=== PATIENT | female | born 1995 | race Caucasian/White ===

== ENCOUNTER 2019-04-12 16:09 | Outpatient (CLI) | payer MEDICAID, SELFPAY ==
[2019-04-12 16:40] LABS: Abs Immature Grans 0.01 k/cumm (0.0-0.09); Absolute Basophil Count 0.05 k/cumm (0.0-0.2); Absolute Eosinophil Count 0.09 k/cumm (0.0-0.7); Absolute Lymphocyte Count 3.17 k/cumm (1.2-3.4); Absolute Neutrophil Count 2.58 k/cumm (1.2-6.7); Basophils % 0.8; Eosinophils % 1.4; HCT 38.6 % (36.0-46.0); HGB 12.7 g/dL (12.0-15.5); Immature Grans % 0.2 %; Lymphocytes % 49.5; Mean Corp. HGB Concentration 32.9 g/dL (32.0-36.0); Mean Corpuscular Hemoglobin 29.6 pg (27.0-33.0); Mean Platelet Volume 9.5 fL (8.0-11.0); Monocytes % 7.8; Neutrophils % 40.3; Platelet Count 228 x1000/uL (130-400); RBC 4.29 m/cumm (4.00-5.20); RBC Distribution Width 13.8 % (11.7-14.6)
[2019-04-12 17:12] LABS: ALT 38 U/L (14-59); AST 22 U/L (15-37); Albumin 3.8 g/dL (3.4-5.0); Alkaline Phosphatase 82 U/L (46-116); Anion Gap 9.5 mmol/L (3-11); BUN 18 mg/dL (7-18); Bilirubin, Total 0.3 mg/dL (0.2-1.0); CO2 28.5 mmol/L (21.0-32.0); CREATININE 0.74 mg/dL (0.55-1.02); Calcium 8.5 mg/dL (8.5-10.1); Chloride 103 mmol/L (98-107); Glucose 79 mg/dL (74-106); Sodium 141 mmol/L (136-145); Total Protein 7.3 g/dL (6.4-8.2)
== END 2019-04-12 16:29 ==
PROVIDERS: PCP Family Medicine; Visit Provider Internal Medicine
DX: R50.9 Fever, unspecified (principal); K59.00 Constipation, unspecified
CPT/HCPCS: 36415; 80053; 85025

== ENCOUNTER 2019-04-18 16:17 | Outpatient (REF) | payer MEDICAID, SELFPAY ==
[2019-04-19 11:32] LABS: Campylobacter PCR Negative (Negative); Salmonella PCR Negative (Negative); Shiga Toxin PCR Negative (Negative); Shigella/Enteroinvasive Ecoli Negative (Negative)
== END 2019-04-18 16:37 ==
LOC: LBN 16:17
PROVIDERS: Internal Medicine; PCP Family Medicine; Visit Provider Family Medicine
DX: K59.00 Constipation, unspecified (principal); R10.9 Unspecified abdominal pain
CPT/HCPCS: 87329; 87505; 87177

== ENCOUNTER 2020-10-31 02:34 | Outpatient (CLI) | payer MEDICAID, SELFPAY ==
[2020-10-31 12:54] LABS: Iron 184 ug/dL (50-170)
[2020-10-31 13:06] LABS: ALT 25 U/L (14-59); AST 45 U/L (15-37); Albumin 4.1 g/dL (3.4-5.0); Alkaline Phosphatase 76 U/L (46-116); Anion Gap 8.5 mmol/L (3-11); BUN 16 mg/dL (7-18); Bilirubin, Total 0.5 mg/dL (0.2-1.0); CO2 29.5 mmol/L (21.0-32.0); CREATININE 0.8 mg/dL (0.55-1.02); Calcium 9.2 mg/dL (8.5-10.1); Calculated LDL 73 mg/dL (<100); Chloride 104 mmol/L (98-107); Cholesterol 163 mg/dL (<200); Ferritin 68 ng/mL (8-252); Glucose 78 mg/dL (74-106); HDL Cholesterol 64 mg/dL (40-60); Potassium 4.7 mmol/L (3.5-5.1); Sodium 142 mmol/L (136-145); TSH (W/Ref FT4) 1.85 uIU/mL (0.36-3.74); Total Protein 7.7 g/dL (6.4-8.2); Triglyceride 131 mg/dL (<150)
== END 2020-10-31 02:35 | disposition home or self-care (01) ==
LOC: LBO 02:34
DX: E61.1 Iron deficiency (principal); Z00.00 Encounter for general adult medical examination without abnormal findings; Z13.220 Encounter for screening for lipoid disorders; R53.83 Other fatigue; G47.00 Insomnia, unspecified
CPT/HCPCS: 36415; 80053; 80061; 82728; 83540; 84443

== ENCOUNTER 2021-08-10 13:14 | Emergency (ER) | payer OTHER, SELFPAY ==
[2021-08-10 13:32] VITALS: BP 118/66; PULSE 120; RESP 14; TEMP 36.6; O2SAT 98
[2021-08-10] MEDS: Ondansetron O.D.T. 4 MG TABEF PO ×2 (14:38→16:47)
--- NOTE | 2021-08-10 14:45 | DI.US_ITS ---
Exam(s) US ABDOMEN LIMITED EXAM: US ABDOMEN LIMITED CLINICAL HISTORY: R/O Cholecystitis, N/V TECHNIQUE: Ultrasound abdomen performed using standard protocol. COMPARISON: US ABDOMEN ULTRASOUND (P) from 07/28/2015 FINDINGS: LIVER: Normal size and echogenicity. No focal liver lesions are seen.. GALLBLADDER: No evidence of cholelithiasis. No evidence of wall thickening. No pericholecystic fluid identified. DIALLO'S SIGN: Negative. BILIARY SYSTEM: No intrahepatic or extrahepatic biliary ductal dilation. RIGHT KIDNEY: Normal size. No evidence of renal calculi. No evidence of hydronephrosis. No suspicious renal mass. No cyst identified. PANCREAS: Normal where visualized. ABDOMINAL AORTA AND IVC: Visualized portions normal caliber. ASCITES: None seen. IMPRESSION: Normal sonographic appearance of the right upper quadrant. DATA REPOSITORY:
[2021-08-10 14:47] LABS: Bilirubin Negative (Negative); Blood Negative (Negative); Clarity Sl Cloudy (Clear); Glucose Negative (Negative); Ketones Negative (Negative); Leukocyte Esterase Negative (Negative); Nitrite Negative (Negative); Urobilinogen 0.2 EU/dL (Up TO 0.2)
[2021-08-10 14:53] LABS: Bacteria Few HPF (Negative); C & S Indicated? No; Casts 0-2 Hyaline LPF (Negative); Crystals Negative HPF (Negative); Epithelial Cells Many HPF (Negative); Mucus Negative (Negative); RBC Negative HPF (0-2); WBC Negative HPF (0-5)
--- NOTE | 2021-08-10 14:54 | W.ED.GENAD ---
Discharge Plan Disposition Patient Disposition: STILL A PATIENT Discharge Details Primary Care Provider: Jhoana Davila ED Provider: Elian Cody Home Meds and New Rx's Prescriptions: No Action buspirone 7.5 mg Tablet 7.5 mg PO BID Medical Decision Making 26-year-old female presents to the ER with chief complaint of midepigastric abdominal pain and nausea vomiting which began approximately 4 AM this morning. She reports diarrhea. Denies any hematochezia or blood in her stool. She denies any history of abdominal surgeries. Past medical history includes iron deficient, scoliosis spondylolisthesis. She is on control denies any possibility being . She reports she was seen by BOBBIN CLEANING MACHINE OPERATOR 2 days ago and had a negative test. 1457: Patient received 4 mg Zofran ODT in the waiting room was given oral fluids upon entrance into the ER room. She has tolerated without difficulty at this time. CBC, CMP, lipase ordered urinalysis shows no evidence for UTI no leukocytes no nitrites. Abdominal ultrasound ordered to rule out cholecystitis. Differential diagnosis includes but not limited to gastroenteritis, cholecystitis, appendicitis. Will consider CT abdomen pelvis without contrast. Care is to be handed off to oncoming provider Asad Cody pending labs and ultrasound report. Lab Data Lab results reviewed: Yes I reviewed the patient's lab results. Labs: Laboratory Tests Range/Units 08/10/21 14:37 Urine Color (Yellow) Yellow Urine Clarity (Clear) Sl Cloudy Urine pH (5-8) 7.0 Ur Specific [place] (1.005-1.025) 1.020 Urine Protein (Negative) mg/dL 30 H Urine Ketones (Negative) mg/dL Negative Urine Blood (Negative) Negative Urine Nitrite (Negative) Negative Urine Bilirubin (Negative) Negative Urine Urobilinogen (Up TO 0.2) EU/dL 0.2 Ur Leukocyte Esterase (Negative) Negative Urine RBC (0-2) HPF Negative Urine WBC (0-5) HPF Negative Ur Epithelial Cells (Negative) HPF Many Urine Crystals (Negative) HPF Negative Urine Bacteria (Negative) HPF Few Urine Casts (Negative) LPF 0-2 Hyaline Urine Mucus (Negative) Negative Ur Culture Indicated? No Urine Glucose (Negative) mg/dL Negative HPI General Mode of arrival: ambulatory. Date/Time Provider Initiated Documentation: 08/10/21 13:36. Limitations to Documentation: no limitations. Information obtained by: patient, RN notes reviewed and old records reviewed. HPI Narrative: 26-year-old female presents to the ER with chief complaint of midepigastric abdominal pain and nausea vomiting which began approximately 4 AM this morning. She reports diarrhea. Denies any hematochezia or blood in her stool. She denies any history of abdominal surgeries. Past medical history includes iron deficient, scoliosis spondylolisthesis. She is on control denies any possibility being . She reports she was seen by BOBBIN CLEANING MACHINE OPERATOR 2 days ago and had a negative test. Related Data Home Medications Medication Instructions Recorded Confirmed buspirone 7.5 mg tablet 7.5 mg PO BID 08/10/21 08/10/21 Allergies Allergy/AdvReac Type Severity Reaction Status Date / Time No Known Allergies Allergy Verified 08/10/21 13:36 General Stated Complaint: Nausea/Vomit/Diar TIEN: 3 Review of Systems All systems reviewed & are unremarkable except as noted in HPI and below Gastrointestinal Gastrointestinal: Reports abdominal pain, Reports diarrhea, Reports nausea and Reports vomiting PFSH All Active Problems Iron deficiency (Acute) Scoliosis deformity of spine (Chronic) Pars defect with spondylolisthesis (Chronic) [facility]; Pars defect of L5 causes grade 2 spondylolisthesis of L5 on S1 Medical History nneka (03/17/15) Fracture of radius and ulna (08/16/05) RIGHT Impacted cerumen of right ear Syncope Family History Mother Frequent UTI Father Essential hypertension Brother Hyperlipidemia Maternal Grandfather , 76 No problems noted. Paternal Grandfather , 36 No problems noted. Maternal Grandmother Asthma Paternal Grandmother No problems noted. Brother No problems noted. Social History Smoking/Tobacco Use Status: Never Second Hand Exposure: Yes Smoking risk assessment performed?: Yes Alcohol Intake: current Alcohol Intake frequency: a few times a week Alcohol type: wine and hard liquor Drug use: Never Substance use type: does not use Counseling given: No Counseling provided: none Caregiver/Support person: No Household members: significant other Housing: house Communication Needs: None Do you need help understanding health information?: Never current occupation: Works as a dental hygienist Pets and animals: Yes Pets and animals: dog(s) Sexually active: Yes Do you think of yourself as: straight/heterosexual Current gender identity: female What is your relationship status?: living with partner How often do you talk on the phone with friends or family?: three or more times per week How often do you get together with friends or relatives?: three or more times per week How often do you attend mandaeism or mu-ism services?: 1-3 times per year Do you belong to any clubs or organized social groups?: no Panel score (0-1 are the most socially isolated patients): 2 What type of physical activity do you participate in: aerobic and weight lifting Duration: 45-60 minutes/day Frequency: 3-4 times per week Coco/Hoahaoism: Congregational Special coco needs: No Seatbelt use: always Helmet use: Yes Helmet use: always Drive intox or ride w/intox piledriver carpenter: No Do you feel safe at home: Yes Do you feel safe in your relationship?: Yes Exam Narrative Exam Narrative: Constitutional: Alert and oriented x3. Appears stated age. Normal body habitus. Head: Normocephalic, no trauma. Eyes: Pupils PERRL, Red reflex noted, EOM's intact. Eyelids symmetrical without lesions, discharge, or swelling. ENT: Bilateral TM's WNL, External ear normal to inspection, no mastoid TTP, swelling, or erythema, Nasal turbinates WNL, no nasal discharge. Normal dentition, Posterior pharynx WNL, no exudate. Chest: RRR, Normal S1, S2, distal pulses intact. Resp: Lungs clear to auscultation bilaterally, no wheezes, rales, or rhonchi. Abdomen: Mid right upper quadrant tenderness with palpation, negative nor Garcia sign. Abdomen is soft, non-distended, hypoactive bowel sounds all 4 quads. Musculoskeletal: Normal gait, 5/5 strength to all four extremities. Skin: No suspicious rashes or lesions. Capillary refill less than 2 sec. Neurologic: Cranial nerves II-XII intact. Alert and oriented x 3. Motor: No deficits noted. Sensory: Intact bilaterally all 4 extremities. Course Vital Signs Vital signs: Vital Signs Temperature 36.6 C 08/10/21 13:32 Pulse 120 H 08/10/21 13:32 Respiratory Rate 14 08/10/21 13:32 Blood Pressure 118/66 08/10/21 13:32 Pulse Oximetry 98 08/10/21 13:32 Temperature 36.6 C 08/10/21 13:32 Temperature Source Skin 08/10/21 13:32 Pulse 120 H 08/10/21 13:32 Respiratory Rate 14 08/10/21 13:32 Respiratory Effort Non-Labored 08/10/21 14:38 Blood Pressure 118/66 08/10/21 13:32 Blood Pressure Position Sitting 08/10/21 13:32 Pulse Oximetry 98 08/10/21 13:32 Oxygen Delivery Method Room Air 08/10/21 13:32 Oxygen Flow Rate 0 08/10/21 13:32 Pain Level 7 08/10/21 13:32 Lab/Test Results Lab/Test Results: Laboratory Tests Range/Units 08/10/21 14:37 Urine Color (Yellow) Yellow Urine Clarity (Clear) Sl Cloudy Urine pH (5-8) 7.0 Ur Specific [place] (1.005-1.025) 1.020 Urine Protein (Negative) mg/dL 30 H Urine Ketones (Negative) mg/dL Negative Urine Blood (Negative) Negative Urine Nitrite (Negative) Negative Urine Bilirubin (Negative) Negative Urine Urobilinogen (Up TO 0.2) EU/dL 0.2 Ur Leukocyte Esterase (Negative) Negative Urine RBC (0-2) HPF Negative Urine WBC (0-5) HPF Negative Ur Epithelial Cells (Negative) HPF Many Urine Crystals (Negative) HPF Negative Urine Bacteria (Negative) HPF Few Urine Casts (Negative) LPF 0-2 Hyaline Urine Mucus (Negative) Negative Ur Culture Indicated? No Urine Glucose (Negative) mg/dL Negative POC- Test(urine) Negative Sign Out Sign Out Data: Sign Out Comment: Pending labs and ultrasound. Midepigastric abdominal pain with nausea vomiting diarrhea began 4 this morning. She is tolerating p.o. fluids without difficulty. Patient did not tolerate IV access or blood draw at this time. Last updated by Allison Cotton at 08/10/21 15:27
[2021-08-10 15:39] LABS: Abs Immature Grans 0.05 10^3/uL (0.0-0.06); Absolute Basophil Count 0.02 10^3/uL (0.0-0.2); Absolute Lymphocyte Count 0.45 10^3/uL (1.2-3.4); Absolute Monocyte Count 0.35 10^3/uL (0.1-0.8); Basophils % 0.1; HCT 44.1 % (36.0-46.0); HGB 14.7 g/dL (11.2-15.7); Immature Grans % 0.3; Lymphocytes % 2.7; MCH 29.4 pg (27.0-33.0); MCHC 33.3 % (32.0-36.0); MCV 88 fL (80-95); MPV 9.1 fL (8.0-11.0); Monocytes % 2.1; Neutrophils % 94.8; Platelet Count 329 10^3/uL (130-400); RDW 12.3 % (11.7-14.6); RDW-SD 39.5 fL; WBC 16.58 10^3/uL (4.4-10.8)
[2021-08-10 15:42] LABS: Absolute Neutrophil Count 15.72 10^3/uL (1.2-6.7)
[2021-08-10 15:57] LABS: ALT 31 U/L (14-59); AST 21 U/L (15-37); Albumin 4.1 g/dL (3.4-5.0); Alkaline Phosphatase 66 U/L (46-116); Anion Gap 10.5 mmol/L (3-11); BUN 19 mg/dL (7-18); Bilirubin, Total 0.7 mg/dL (0.2-1.0); CO2 25.5 mmol/L (21.0-32.0); CREATININE 0.8 mg/dL (0.55-1.02); Calcium 8.7 mg/dL (8.5-10.1); Chloride 106 mmol/L (98-107); Glucose 109 mg/dL (74-106); Magnesium 1.6 mg/dL (1.8-2.4); Sodium 142 mmol/L (136-145)
[2021-08-10 16:04] LABS: Lipase 49 U/L (73-393)
[2021-08-10] MEDS: Magnesium Oxide 400 MG TAB PO (16:05)
--- NOTE | 2021-08-10 16:43 | W.EDPROG ---
Date of service: 08/10/21 Time of Service: 15:43 Medical Decision Making Patient signed out to me pending ultrasound imaging and review of remainder of labs. medical staff director did inform me that patient is tolerating p.o. intake. Discussion of ultrasound with field installation technician reveals no worrisome findings to the right upper quadrant. Review of labs do show leukocytosis but I suspect that this is more due to patient's vomiting than acute bacterial infectious process, patient does have low magnesium and we will plan on giving oral mag due to patient tolerating p.o. intake. Lipase is within normal limits and CMP shows slight increase of BUN, appropriate creatinine, slightly elevated glucose otherwise nondiagnostic labs with normal LFTs. Given overall not worrisome labs I did reassess patient. Patient still has mild epigastric tenderness but no positive Garcia sign, no McBurney's point tenderness, normal active bowel sounds in all quadrants, and she did state improvement of symptoms compared to initial presentation. I suspect either foodborne illness versus viral etiology but safe for outpatient management of symptoms. Did discuss with patient return and follow-up precautions. Will send patient home with ALAN Deleon and instructed patient to have clear liquids for the next 12 to 24 hours and then slowly increase diet as tolerated. After discussion of diagnosis and plan of care patient has no further needs, questions, or concerns and states clear understanding to return to the emergency department for any worsening symptoms. Lab Data Lab results reviewed: Yes I reviewed the patient's lab results. Exam Const General: cooperative Orientation: alert, awake and oriented x3 Resp Effort & Inspection: normal respiratory effort and able to speak in complete sentences Auscultation: clear to auscultation bilaterally Cardio Rate: regular rate Rhythm: regular rhythm Heart Sounds: S1 normal and S2 normal GI Palpation: soft, no hepatosplenomegaly, not firm, no guarding, no masses, no pulsatile masses, not rigid, no splenomegaly and tender in the epigastrum; not in the RUQ, not at McBurney's point, not suprapubicly, Garcia's sign negative, psoas sign negative, with no rebound tenderness and Rovsing's sign negative Auscultation: normal bowel sounds Back/Spine/Pelvis Back: no CVA tenderness Neuro General: patient alert, patient awake, patient oriented x3, gait normal and moves all extremities Sign Out Sign Out Data: Sign Out Comment: Pending labs and ultrasound. Midepigastric abdominal pain with nausea vomiting diarrhea began 4 this morning. She is tolerating p.o. fluids without difficulty. Patient did not tolerate IV access or blood draw at this time. Last updated by Allison Cotton at 08/10/21 15:27 Discharge Plan Disposition Patient Disposition: HOME Condition: Improving Discharge Details Clinical Impression: Nausea & vomiting Primary Care Provider: Jhoana Davila ED Provider: Elian Cody Home Meds and New Rx's Prescriptions: No Action buspirone 7.5 mg Tablet 7.5 mg PO BID Discharge Instructions Instructions: Acute Nausea and Vomiting (ED) Additional Instructions: As discussed if you have a worsening or migration of pain to a localized spot in your abdomen such as right lower quadrant return immediately to the emergency department, persistent vomiting that is uncontrollable, or any worrisome concerns that you have and we will perform appropriate reassessment and testing as needed. It is recommended for the next 12 to 24 hours that you start with clear liquids and then slowly resume your normal diet as tolerated. Do not eat a large meal as this may worsen it but start with small frequent meals. If no worsening of symptoms occurs but you are not improving in the next 3 to 4 days please follow-up with your primary care provider for reassessment. Stand Alone Forms: Work Release Referrals: Jhoana Davila [Primary Care Provider] - (As needed for reassessment or if not improving) Discharge Data Discharge Date/Time-TO BE ENTERED AT DEPARTURE: 08/10/21 16:52
[2021-08-10] MEDS: Acetaminophen 500 MG TAB 1000 MG PO (16:47)
[2021-08-10] MEDS: Ondansetron O.D.T. 4 MG TABEF, 3 TABS/BTL PO (16:47)
== END 2021-08-10 16:52 | disposition home or self-care (01) ==
PROVIDERS: Registered Nurse Emergency; Emergency Provider Nurse Practitioner Family; PCP Nurse Practitioner Family
DX: R11.2 Nausea with vomiting, unspecified (principal); D72.829 Elevated white blood cell count, unspecified
CPT/HCPCS: 36415; 80053; 83690; 99284; 76705; 81003; 81015; 83735; 85025; 99283

== ENCOUNTER 2022-07-16 14:42 | Outpatient (REF) | payer OTHER, SELFPAY | END 2022-07-16 14:43 | disposition home or self-care (01) | LOC: LBN 14:42 | PROVIDERS: PCP Nurse Practitioner Family; Visit Provider Physician Assistant Medical | DX: J02.9 Acute pharyngitis, unspecified (principal) | CPT/HCPCS: 87070 ==

== ENCOUNTER 2022-09-03 15:03 | Outpatient (REF) | payer OTHER, SELFPAY ==
--- NOTE | 2022-09-03 14:30 | PAPFT_PTH ---
PATIENT: Francisco Thayer LOC: [facility] U#:[id number] AGE/SX: 27/F ROOM: RE09/03/[address]: Jhoana Davila : 1995 BED: DIS: 09/03/2022 SPEC #: [id number] RECD: 09/09/22 13:38 STATUS: KATHERINE REMayra #: [id number] MUSA: 09/03/22 14:[address]: Jhoana Davila DEPT: [facility] Cytology RECD BY: Miladys Bullard Tissues: 1 - CX/ENDOCX FOR PAP SMEARS Procedures: PAP THIN PREP/[facility] Screening Comments: [id number]
== END 2022-09-03 15:04 | disposition home or self-care (01) ==
LOC: NCHCN 15:03
PROVIDERS: PCP Nurse Practitioner Family; Visit Provider Nurse Practitioner Family
DX: Z00.00 Encounter for general adult medical examination without abnormal findings (principal); Z12.4 Encounter for screening for malignant neoplasm of cervix; Z01.419 Encounter for gynecological examination (general) (routine) without abnormal findings
CPT/HCPCS: 88142

== ENCOUNTER 2023-04-12 16:31 | Outpatient (REF) | payer OTHER, SELFPAY | END 2023-04-12 16:32 | disposition home or self-care (01) | LOC: LBN 16:31 | PROVIDERS: PCP Nurse Practitioner Family; Visit Provider Advanced Practice Midwife | DX: O26.891 Other specified pregnancy related conditions, first trimester (principal); R10.9 Unspecified abdominal pain; Z3A.09 9 weeks gestation of pregnancy | CPT/HCPCS: 87086 ==

== ENCOUNTER 2023-04-22 02:44 | Outpatient (CLI) | payer OTHER, SELFPAY ==
[2023-04-22 12:03] LABS: Panorama Kit Sent via Fed Ex
[2023-04-22 12:14] LABS: Abs Immature Grans 0.06 10^3/uL (0.0-0.06); Absolute Basophil Count 0.05 10^3/uL (0.0-0.2); Absolute Eosinophil Count 0.08 10^3/uL (0.0-0.7); Absolute Lymphocyte Count 2.37 10^3/uL (1.2-3.4); Absolute Monocyte Count 0.75 10^3/uL (0.1-0.8); Absolute Neutrophil Count 8.78 10^3/uL (1.2-6.7); Basophils % 0.4; Eosinophils % 0.7; HCT 37.1 % (36.0-46.0); HGB 12.8 g/dL (11.2-15.7); Immature Grans % 0.5; Lymphocytes % 19.6; MCH 29.6 pg (27.0-33.0); MCHC 34.5 % (32.0-36.0); MCV 86 fL (80-95); Monocytes % 6.2; Neutrophils % 72.6; Platelet Count 304 10^3/uL (130-400); RBC 4.32 10^6/uL (3.93-5.22); RDW 12.6 % (11.7-14.6); RDW-SD 39.6 fL; WBC 12.09 10^3/uL (4.4-10.8)
[2023-04-22 12:45] LABS: TSH (W/Ref FT4) 1.96 uIU/mL (0.36-3.74)
[2023-04-22 17:43] LABS: Hepatitis B Surface Ag Negative (Negative)
[2023-04-22 18:10] LABS: HIV-1/2 Ag & Ab Screen Negative (Negative)
[2023-04-22 18:15] LABS: Hepatitis C Ab w Rflx HCV PCR Negative (Negative)
[2023-04-25 12:15] LABS: Varicella IgG Antibody Positive (See Note)
[2023-04-25 12:35] LABS: Rubella IgG Ab (UVM) Positive (See Note)
[2023-04-26 15:37] LABS: Syphilis IgG w/Reflex Nonreactive (Nonreactive)
[2023-05-11 12:19] LABS: Result Summary NEGATIVE; Specimen WB Whole Blood
== END 2023-04-22 02:45 | disposition home or self-care (01) ==
LOC: LBO 02:44
PROVIDERS: Advanced Practice Midwife; PCP Nurse Practitioner Family; Visit Provider Advanced Practice Midwife
DX: Z34.91 Encounter for supervision of normal pregnancy, unspecified, first trimester (principal); Z83.49 Family history of other endocrine, nutritional and metabolic diseases
CPT/HCPCS: 36415; 81220; 81222; 86787; 86803; 86850; 86900; 86901; 87340; 87389; 84443; 85025; 86762; 86780

== ENCOUNTER 2023-04-22 11:35 | Outpatient (REF) | payer OTHER, SELFPAY ==
[2023-04-23 13:46] LABS: Chlamydia Result Negative (Negative); GC Result Negative (Negative)
== END 2023-04-22 11:36 | disposition home or self-care (01) ==
LOC: LBN 11:35
PROVIDERS: PCP Nurse Practitioner Family; Visit Provider Advanced Practice Midwife
DX: Z34.91 Encounter for supervision of normal pregnancy, unspecified, first trimester (principal)
CPT/HCPCS: 87491; 87591

== ENCOUNTER 2023-08-19 02:10 | Outpatient (CLI) | payer OTHER, SELFPAY ==
[2023-08-19 08:58] LABS: HCT 36.2 % (36.0-46.0); HGB 11.9 g/dL (11.2-15.7); MCH 29.7 pg (27.0-33.0); MCHC 32.9 % (32.0-36.0); MCV 90 fL (80-95); MPV 8.9 fL (8.0-11.0); Platelet Count 305 10^3/uL (130-400); RBC 4.01 10^6/uL (3.93-5.22); RDW 12.3 % (11.7-14.6); RDW-SD 40.7 fL; WBC 9.32 10^3/uL (4.4-10.8)
[2023-08-19 09:18] LABS: Glucose,1 Hr (Glucola) 143 mg/dL (80-140)
== END 2023-08-19 02:11 | disposition home or self-care (01) ==
LOC: LBO 02:19
PROVIDERS: PCP Nurse Practitioner Family; Visit Provider Advanced Practice Midwife
DX: Z34.92 Encounter for supervision of normal pregnancy, unspecified, second trimester (principal); Z3A.28 28 weeks gestation of pregnancy
CPT/HCPCS: 36415; 82950; 85027

== ENCOUNTER 2023-09-02 01:28 | Outpatient (CLI) | payer OTHER, SELFPAY ==
[2023-09-02 09:10] LABS: Glucose 1 Hour 164 mg/dL
[2023-09-02 11:08] LABS: Glucose 3 Hour 96 mg/dL
== END 2023-09-02 01:29 | disposition home or self-care (01) ==
LOC: LBO 01:29
PROVIDERS: PCP Nurse Practitioner Family; Visit Provider Advanced Practice Midwife
DX: Z34.90 Encounter for supervision of normal pregnancy, unspecified, unspecified trimester (principal)
CPT/HCPCS: 36410; 82951

== ENCOUNTER 2023-10-24 16:29 | Outpatient (CLI) | payer OTHER, SELFPAY ==
[2023-10-24 17:14] VITALS: BP 130/74; PULSE 80
[2023-10-24 17:17] VITALS: BP 130/74; PULSE 96
--- NOTE | 2023-10-24 17:27 | W.OBNST ---
Date of service: 10/24/23 Time of Service: 17:27 NST Evaluation Reason for NST Reasons for Nonstress Test: OTHER, SEE COMMENT Reason for NST Other: CNM wanted to confirm baseline FHR Gestational Age Gestational Age in Weeks and Days: 37 Weeks and 3Days Test and Monitor Explained Test/Monitor Explained: Test Explained, Monitor Explained and Patient Verbalized Understanding Vital Signs Blood Pressure: 130/74 Pulse: 80 NST Information Date on Monitor: 10/24/23 Time on Monitor: 16:33 Date off Monitor: 10/24/23 Time off Monitor: 16:54 Total Time on Monitor: 21 NST Interventions: None NST Evaluation Patient States Movement: Present FHR Baseline: 130 Variability: Moderate 6-25 bpm Accelerations: 15x15 Decelerations: None NST Results: Reactive Note Ultrasound Done: N/A. NST Note Note: Francisco had routine visit today and low FHR baseline was noted with doppler. reactive NST with 120s baseline. RTO 1 week for visit, NST Reviewed and Verified by: Meggan Lobo
[2023-10-24 17:29] VITALS: BP 130/74; PULSE 80
[2023-10-26 08:42] VITALS: BP 113/65; PULSE 94
[2023-10-26 08:45] VITALS: PULSE 111
== END 2023-10-24 17:21 ==
LOC: BCD 16:30 → OBS 16:33
PROVIDERS: PCP Nurse Practitioner Family; Visit Provider Advanced Practice Midwife
DX: O36.8331 Maternal care for abnormalities of the fetal heart rate or rhythm, third trimester, fetus 1 (principal); Z3A.37 37 weeks gestation of pregnancy
CPT/HCPCS: 59025; 87081

== ENCOUNTER 2023-11-04 08:46 | Inpatient (IN) | payer OTHER, SELFPAY ==
[2023-11-04] VITALS (116 sets, daily range): BP systolic 69–146; BP diastolic 44–83; PULSE 86–153; RESP 16; TEMP 36.2–37; O2SAT 95–100; BMI 36.5
--- NOTE | 2023-11-04 08:48 | HPE_ITS ---
Date of service: 11/04/23 Time of Service: 08:48 Assessment and Plan Assessment and plan (1) PROM (premature rupture of membranes): Status: Acute Assessment and plan: A: 28 yo G1 @ 39 wks, PROM clear x9 hrs, latent phase w/marshall score=5 GBS neg, moderate risk for SD/PPH due to BMI and 60 lb weight gain Category 1 tracing, pt appears comfortable, FOB present for support Hx anxiety treated w/sertraline and anemia treated w/oral iron supplementation Scoliosis of the spine, INTELLIGENCE ANALYST consult done 10/13/23 (see note) P: Options in plan of care with risks and benefits reviewed with pt & FOB, Pt would like a misoprostel dose in hopes of triggering labor Plan will be to initiate pitocin induction if no cervical change after miso dose Care plan made in consultation with Dr. Blunt and unit huddle due to volume on unit Comfort measures as requested by pt, anticipate Qualifiers: PROM onset of labor timing: unspecified duration between rupture of membranes and onset of labor PROM gestational age: full term Qualified Code(s): O42.92 - Full-term premature rupture of membranes, unspecified as to length of time between rupture and onset of labor OB-HPI Labor/Delivery History of Present Illness Reason for Visit: PROM at 39 Wks Chief Complaint: Suspected Rupture of Membranes , Associated Signs and Symptoms of Suspected ROM: gushes of clear fluids since 129, mild cramping, no bleeding, no vomiting.. VIOLET Calculator Estimated Delivery Date Method Current WG Current Estimate 11/11/23 LMP (Certain) 39w 0d Other Estimates 11/14/23 Ultrasound #1 38w 4d History of Present Expected Delivery Route/Plan - CNM FOB/ - Mike Thayer BB, yes to circ team is FOB and damage assessor ([place]) Took empowered birthing classes. Hopes not to have epidural but would be OK with it GBS negative Specific Issues/Plan 1. cfDNA low risk male, CF carrier negative, declined SMA 2. Will get records release for Pap done 2022 at [facility] 3. Scoliosis, plan third trimester INTELLIGENCE ANALYST assessment, done 10/13/23 4. 5P's negative 5. Takes sertraline for anxiety, Taking 50 mg 6. Low lying placenta, patient notified, 28 weeks US- now 4 cms from cervical os. 7. one hour GTT @ 28 wks - 143, 3-hr GTT = nml x4 8. Sees a chiropractor regularly for chronic low back, neck and shoulder pain - right outer thigh numbness at 37 weeks. Assessment: History Reviewed & Current Informed Consent Informed Consent: Induction of Labor and Risk,Benefits,Alternatives Discussed Review of Systems Narrative: ROS completed and noncontributory other than HPI PFSH All Active Problems (Updated 11/04/23 @ 08:53 by Diana Lebron) PROM (premature rupture of membranes) (Acute) Stress incontinence (Acute) (Acute) Anxiety (Chronic) Iron deficiency (Acute) Scoliosis deformity of spine (Chronic) Pars defect with spondylolisthesis (Chronic) [facility]; Pars defect of L5 causes grade 2 spondylolisthesis of L5 on S1 Medical History (Updated 11/04/23 @ 08:53 by Diana Lebron) Nausea/vomiting in 03/2023. Initial Rx Ondansetron not effective. 04/06/23. Discontinued Ondansetron, Began Reglan 5mg q6hr Cramping affecting , antepartum Low lying placenta nos or without hemorrhage, second trimester resolved by 28 wk ultrasound Family history of thyroid disease Impacted cerumen of right ear Syncope nneka (03/17/15) Fracture of radius and ulna (08/16/05) RIGHT Family History (Updated 04/22/23 @ 10:54 by Meggan Hall CNM) Mother Frequent UTI Thyroid disease Father Essential hypertension Brother Hyperlipidemia Maternal Grandfather , 76 No problems noted. Paternal Grandfather , 36 Cancer Lung CA, was smoker Maternal Grandmother Asthma Paternal Grandmother Breast cancer diagnosed 71 Brother No problems noted. Social History Smoking/Tobacco Use Status: Never Second Hand Exposure: Yes Smoking risk assessment performed?: Yes Alcohol Intake: current Alcohol Intake frequency: a few times a week Alcohol type: wine and hard liquor Drug use: Never Substance use type: does not use Counseling given: No Counseling provided: none Caregiver/Support person: No Household members: significant other Housing: house Communication Needs: None Do you need help understanding health information?: Never current occupation: Works as a dental hygienist Pets and animals: Yes Pets and animals: dog(s) Sexually active: Yes Do you think of yourself as: straight/heterosexual Current gender identity: female What is your relationship status?: living with partner How often do you talk on the phone with friends or family?: three or more times per week How often do you get together with friends or relatives?: three or more times per week How often do you attend denominational or tenriism services?: 1-3 times per year Do you belong to any clubs or organized social groups?: no Panel score (0-1 are the most socially isolated patients): 2 What type of physical activity do you participate in: aerobic and weight lifting Duration: 45-60 minutes/day Frequency: 3-4 times per week Coco/Hindu: Adventist Special coco needs: No Seatbelt use: always Helmet use: Yes Helmet use: always Drive intox or ride w/intox trash collector truck driver: No Do you feel safe at home: Yes Do you feel safe in your relationship?: Yes History History 2 Para 0 Hx # Term Pregnancies 0 Multiple births 0 Hx # Pregnancies 0 Ectopic pregnancies 0 AB induced 0 Hx Number of Living Children 0 AB spontaneous 1 Past Pregnancies Del. Date GA/Weeks # Preg Succ Route Wgt Sex Labor Lgth Anesth esia Location Prov Complic 01/19/23 6 No Delivery Date: 01/19/23 Last Updated by: Meggan Hall CNM [facility], treated at [facility]/ D&C Med Allergies and Home Medications Allergies Allergy/AdvReac Type Severity Reaction Status Date / Time adhesive tape AdvReac Intermediate Skin Rash Uncoded 11/03/23 14:10 Home Medications ?Medication ?Instructions ?Recorded ?Confirmed ?Type vitamin #56-iron 35 mg 1 cap PO DAILY 03/16/23 11/04/23 History and 5 mg-folic acid 1 mg-dha capsule ondansetron HCl 8 mg tablet 8 mg PO Q8H PRN nausea and 06/10/23 11/04/23 Rx vomiting #30 tabs ascorbate calcium (vitamin C) 500 500 mg PO DAILY PRN 09/23/23 11/04/23 History mg tablet docusate sodium 50 mg capsule 50 mg PO BID PRN 09/23/23 11/04/23 History (Colace Clear) magnesium 200 mg tablet 200 mg PO DAILY PRN 09/23/23 11/04/23 History omeprazole magnesium 20 mg 40 mg PO DAILY PRN 09/23/23 11/04/23 History capsule,delayed release (Acid Bologna Maker (omeprazole)) sertraline 50 mg tablet 50 mg PO DAILY #30 tabs 09/23/23 11/04/23 Rx [place] oil PO 10/24/23 11/03/23 History Exam Physical Exam Vital Signs Reviewed: Yes Narrative: afebrile, normotensive Constitutional Constitutional: no acute distress, obese and cooperative Detailed Labor and Delivery Exam Dilation: 1 Effacement (%): 70 station: -3 Position: LOP Cervix position: mid Consistency: medium MARSHALL Score(Cervical Ripeness Score): 5 Amniotic Membrane Status: Ruptured Amniotic Fluid: Clear Pooling: Positive (gross rupture) Nitrazine: Positive Ferning: Present Contraction Frequency(min): irregular Contraction Intensity: Mild Fetus A Heart Rate Baseline: 140 Monitor Accelerations: 15 X 15 Monitor Decelerations: None Variability: Moderate (6-25 BPM) Categories: Category I Est. Weight: 8 lb 9.568 oz Est. Weight: 3900 gms Date of Membrane Rupture: 11/04/23 Time of Membrane Rupture: 01:30 HEENT Exam HEENT Exam: Normal Neck Exam Neck Exam: Normal Chest/Brest/Axilla Exam Chest Exam: Normal Breast Exam Breast Exam: Not Done Respiratory Exam Respiratory Exam: Normal Cardiovascular Exam Cardiovascular Exam: Normal Abdominal Exam Abdominal Exam: Normal (Gravid, nontender) Rectal Exam Rectal Exam: Normal Exam Exam: Normal Extremities Exam Extremities Exam: Normal Back/Spine/Pelvis Exam Back Exam: Normal Pelvis Adequate: Yes Skin Exam Skin Exam: Normal Neurological Exam Neurological Exam: Normal Psychiatric Exam Psychiatric Exam: Normal Results Results Group Beta Strep: Negative Blood Type: B+ Rubella Status: Immune Varicella Immunity: Immune Lab Results: 3 hr GTT at 30 wks was nml x4 values Risk Assessment Risk for Shoulder Dystocia Historical/Initial OB: NEGATIVE FOR: Pelvic Abnormality, Pre- BMI>30, Previous Shoulder Dystocia or Previous Macrosomia 36 Weeks: POSITIVE FOR: Maternal Weight Gain>40lbs; NEGATIVE FOR: Current Gestational DM or EFW>4500gms Increased Risk?: Yes Date/Initial: 04/22/23 [facility] Delivery Plan @ 36wks: spont labor, Risk for Pre-Eclampsia Date Initiated/Initials: 04/22/23 Yes, if one or more: NEGATIVE FOR: Hx Pre-E/Gest HTN, Chronic HTN, Multiple Gestation, Pre-gestational DM, Renal Disease, Systemic Lupus or APA Syndrome Yes, if 2 or more: POSITIVE FOR: Nulliparity; NEGATIVE FOR: Age>= 35 yrs, >10yr btwn pregnancies, BMI>30, ethinicty, Mother/Sister w/ Pre-E or Previous IUGR Risk for Post- Hemorrhage Initial: NEGATIVE FOR: Multiple Gestation, Previous PPH, Known Clotting Deficiency, Grand Multiparity or Anticoagulation 36 Weeks: NEGATIVE FOR: Anemia, hgb<10, Low platelets(thrombocytopenia), Gestational HTN or Pre-E, Polyhydraminios or EFW>4500gms At Risk?: Yes (due to LGA and induction process) Counseled re: Active Management: Yes Risks Reviewed Risks Reviewed Upon Admission: Yes
[2023-11-04 09:06] LABS: HCT 37.9 % (36.0-46.0); HGB 12.4 g/dL (11.2-15.7); MCH 28.4 pg (27.0-33.0); MCHC 32.7 % (32.0-36.0); MCV 87 fL (80-95); MPV 9.5 fL (8.0-11.0); Platelet Count 275 10^3/uL (130-400); RBC 4.36 10^6/uL (3.93-5.22); RDW 13.8 % (11.7-14.6); RDW-SD 43.5 fL; WBC 10.23 10^3/uL (4.4-10.8)
--- NOTE | 2023-11-04 14:17 | W.PM.OBNL1 ---
Date of service: 11/04/23 Time of Service: 14:18 Pelvic Exam Dilation: 2 Effacement (%): 100 station: -3 Cervix Position: mid Consistency: soft BISHOPS Score(Cervical Ripeness Score): 7 Contractions Monitor Mode: External Contraction Frequency(min): q3-4 Intensity: Mild/Moderate Fetus A Monitor: External (US) Heart Rate Baseline: 150 Variability: Moderate (6-25 BPM) Categories: Category I Accelerations: 15 X 15 Decelerations: None Amniotic Membrane Status: Ruptured Assessment and Plan Assessment and plan (1) PROM (premature rupture of membranes): Status: Acute Assessment and plan: A: Miso dose was held as pt became more uncomfortable and contrx more frequent She has been showering, resting and ambulating, tolerating very light PO intake. SVE done at pt request, cvx now 2/100%, vtx -3 Category 1 tracing, hill score advanced to 7 P: Cervical ripening not indicated, pt declines pitocin induction at this time Will continue expectant management, monitor for progress Comfort measures as pt requests Qualifiers: PROM onset of labor timing: unspecified duration between rupture of membranes and onset of labor PROM gestational age: full term Qualified Code(s): O42.92 - Full-term premature rupture of membranes, unspecified as to length of time between rupture and onset of labor Objective Temp Pulse Resp BP Pulse Ox 97.5 F L 103 H 16 132/79 99 11/04/23 12:30 11/04/23 13:27 11/04/23 09:22 11/04/23 13:27 11/04/23 09:22 Laboratory Results WBC 10.23 10^3/uL (4.4-10.8) 11/04/23 08:57 RBC 4.36 10^6/uL (3.93-5.22) 11/04/23 08:57 Hgb 12.4 g/dL (11.2-15.7) 11/04/23 08:57 Hct 37.9 % (36.0-46.0) 11/04/23 08:57 MCV 87 fL (80-95) 11/04/23 08:57 MCH 28.4 pg (27.0-33.0) 11/04/23 08:57 MCHC 32.7 % (32.0-36.0) 11/04/23 08:57 RDW 13.8 % (11.7-14.6) 11/04/23 08:57 Plt Count 275 10^3/uL (130-400) 11/04/23 08:57 MPV 9.5 fL (8.0-11.0) 11/04/23 08:57 ABO/Rh B Positive 11/04/23 08:57 Antibody Screen NEGATIVE 11/04/23 08:57 Vital Signs Reviewed: Yes Objective Narrative Objective Narrative: Misoprostel was never given as pt's contractions increased and pt became more uncomfortable spontaneously Vital signs are stable Pt's FOB and game producer are bedside for support Pt ambulating around room, in the shower, resting in bed, coping well with contrx Subjective Interval history since last seen: contractions have become painful and more frequent, being in the shower is the most comforting, was able to get a 20 minute nap earlier.
--- NOTE | 2023-11-04 17:56 | ANES.PREOP_ITS ---
General Info Date of Service Date Performed: 11/04/23 Height: 5 ft 8 in Weight: 108.862 kg Body Mass Index (BMI): 36.5 Meds Allergies and Home Medications Allergies Allergy/AdvReac Type Severity Reaction Status Date / Time adhesive tape AdvReac Intermediate Skin Rash Uncoded 11/03/23 14:10 Home Medication ?Medication ?Instructions ?Recorded vitamin #56-iron 35 mg 1 cap PO DAILY 03/16/23 and 5 mg-folic acid 1 mg-dha capsule ondansetron HCl 8 mg tablet 8 mg PO Q8H PRN nausea and 06/10/23 vomiting #30 tabs ascorbate calcium (vitamin C) 500 500 mg PO DAILY PRN 09/23/23 mg tablet docusate sodium 50 mg capsule 50 mg PO BID PRN 09/23/23 (Colace Clear) magnesium 200 mg tablet 200 mg PO DAILY PRN 09/23/23 omeprazole magnesium 20 mg 40 mg PO DAILY PRN 09/23/23 capsule,delayed release (Acid Hearing Stenographer (omeprazole)) sertraline 50 mg tablet 50 mg PO DAILY #30 tabs 09/23/23 [place] oil 1 cap PO DAILY 10/24/23 Current Visit Medications: Current Medications Generic Name Dose Route Start Last Admin Trade Name Freq PRN Reason Stop Dose Admin Omeprazole 40 mg 11/04/23 09:02 Omeprazole 20 Mg Capcr PO DAILY PRN PRN Sertraline HCl 50 mg 11/04/23 20:00 Sertraline 50 Mg Tab PO QPM CHRIS Terbutaline Sulfate 0.25 mg 11/04/23 08:45 Terbutaline 1 Mg/Ml Vial SC PRN PRN PFSH Active Problems Active Problems: Problem Status Onset Code PROM (premature rupture of membranes) Acute O42.90 Stress incontinence Acute N39.3 Acute Z34.90 Anxiety Chronic F41.9 Iron deficiency Acute E61.1 Scoliosis deformity of spine Chronic 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 Initial Rx Ondansetron not effective. 04/06/23. Discontinued Ondansetron, Began Reglan 5mg q6hr Cramping affecting , antepartum Low lying placenta nos or without hemorrhage, second trimester resolved by 28 wk ultrasound Family history of thyroid disease Impacted cerumen of right ear Syncope nneka (03/17/15) Fracture of radius and ulna (08/16/05) RIGHT Tobacco Smoking/Tobacco Use Status: Never Passive smoking exposure: Yes Second hand exposure: Yes Substance Use Substance use: Never Substance use type: does not use Counseling provided: none Prental History History 2 2 Para 0 Hx # Term Pregnancies 0 Multiple births 0 Hx # Pregnancies 0 Ectopic pregnancies 0 AB induced 0 Hx Number of Living Children 0 AB spontaneous 1 Past Pregnancies Del. Date GA/Weeks # Preg Succ Route Wgt Sex Labor Lgth Anesth esia Location Prov Complic 01/19/23 6 No Delivery Date: 01/19/23 Last Updated by: Meggan Hall CNM [facility], treated at [facility]/ D&C Vital Signs and Lab Results Vital Signs Most Recent Vital Signs in EMR: Most Recent Vital Signs Temp Pulse Resp BP Pulse Ox 36.5 C 103 H 16 132/79 99 11/04/23 14:30 11/04/23 13:27 11/04/23 09:22 11/04/23 13:27 11/04/23 09:22 Lab Results 11/04/23 08:57 Blood Type / Crossmatch: 2 Antibody Screen NEGATIVE 11/04/23 Complete Blood Count: 2 White Blood Count 10.23 10^3/uL (4.4-10.8) 11/04/23 08:57 Red Blood Count 4.36 10^6/uL (3.93-5.22) 11/04/23 08:57 Hemoglobin 12.4 g/dL (11.2-15.7) 11/04/23 08:57 Hematocrit 37.9 % (36.0-46.0) 11/04/23 08:57 Platelet Count 275 10^3/uL (130-400) 11/04/23 08:57 Complete Metabolic Panel: 2 No Data to Display Liver Function Panel: 2 No Data to Display Coagulation Panel: 2 No Data to Display Cardiac Panel: 2 No Data to Display Arterial Blood Gas: 2 No Data to Display Venous Blood Gas: 2 No Data to Display Pancreas Panel: 2 No Data to Display Thyroid Panel: 2 No Data to Display Infectious Disease: 2 No Data to Display Blood Cultures: 2 No Data to Display Toxicology Panel: 2 No Data to Display Panel: 2 No Data to Display Anesthesia Assessment and Plan Anesthesia History Personal History: No History of Anesthesia Complications Family History: No Family History of Anesthesia Complications Exercise Tolerance Exercise Tolerance: Metabolic Equivalents>4 Pertinent Negatives Pertinent Negatives: No Major Cardiovascular Symptoms or Complaints and No Major Pulmonary Symptoms or Complaints Cardiac & Pulmonary Exam Cardiac Exam: Normal S1/S2 Heart Sounds Pulmonary Exam: Clear Bilateral Breath Sounds Implantable Cardiac Device Does patient have a Pacemaker or an ICD?: No Airway Exam Known Difficult Airway: No Mallampati Class: 1 Mouth Opening: Normal (> 3cm) Thyromental Distance: Greater than 3 cm Neck Range of Motion: Full ROM Neck Circumference: Normal Teeth Condition: Normal Dentition ASA Classification ASA Score: ASA 2 Emergency Case?: No NPO Status NPO Status: Full Stomach () Status Status: Confirmed Anesthesia Plan Resuscitation Status: Full Code Anesthesia Technique: Labor Epidural Airway Planned: Natural Airway Monitors Used: Standard Monitors Preoperative Comments:: 3 cm
[2023-11-04] MEDS: FentaNYL/ROPIvacaine 2 mcg/ml and 0.1% 200 ML CADD Cassette EP (18:44)
--- NOTE | 2023-11-04 18:46 | W.ANESNEU ---
Epidural/Spinal Catheter Date Performed: 11/04/23 Procedure Start: 18:15 Procedure Stop: 18:48 Requesting Provider: Meggan Lobo Procedure Location: Obstetrics Reason Performed: Labor Epidural Standard Monitors Applied: Blood Pressure, SpO2 and See EMR for corresponding vital signs Patient Position: Sitting Sedation Given (Indicate Dose Given): No Sedation given Patient Mental Status: Awake Sterility: Hand Hygiene, Surgical Cap, Surgical Mask, Sterile Gloves, Sterile Drape/Sheet and Chlorhexidine Procedure Location: L2-L3 Interspace Epidural Needle: Tuohy 18 Gauge Needle Length: 3.5 Inch Needle Approach: Midline Epidural Procedure: Skin Prepped, Sterile Drape Placed, 1% Lidocaine to skin and subcutaneous tissue with 25G needle, Tuohy Needle placed, GILMAR to Saline Used, Epidural Catheter Placed, Negative Heme, Negative CSF Flow and Tuohy Needle Removed Catheter Placed?: Catheter Placed Test Dose (Indicate Dose Given): 3ml 1.5% Lidocaine with 1:200K Epinephrine Given and Negative Test Dose Loss of Resistance Depth (cm): 8 Catheter depth at skin (cm): 14 Dressing: Tegaderm Applied and Mastisol Used Epidural Provider Bolus (Indicate Dose Given): Total bolus dose given in 3-5 ml divided doses and Total Bupivacaine 0.25% Given (ml) Dose:: 6 mL Additives (Indicate Dose Given ): Fentanyl PF Dose:: 100 mcg Infusion Medication: Medication Infusion Began Medication Infusion: Ropivacaine 0.1% with Fentanyl 2mcg/ml Maintenance Infusion Rate (ml/hour): 10 PCEA Bolus Dose (ml): 5 Post Procedure Pain score (0-10): 0 Block Level: N/A Paresthesia: None Ultrasound: Not Used Number of Attempts (See previous attempts in note section): 1 Procedure Tolerated: No Complications and Patient tolerated well Procedure Outcome: Successful Procedure Comment:: Delayed start of infusion due to low BP which I treated with Ephedrine 15 mg and 10 mg with good response. See EMR for VS. Tops of thighs numb but maintains good LE ROM. Patient states comfort. Performed By: Adela Graham
--- NOTE | 2023-11-04 18:48 | W.PM.OBNL1 ---
Date of service: 11/04/23 Time of Service: 18:48 Informed Consent Informed Consent: Induction of Labor and Risk,Benefits,Alternatives Discussed Pelvic Exam Dilation: 3 Effacement (%): 100 station: -3 Cervix Position: posterior Consistency: soft Vaginal Exam Presentation: Cephalic Comments: cervical exam by Nhung Lebron CNM at 1600 Contractions Monitor Mode: External Contraction Frequency(min): evry 3-4 Contraction Duration(sec): 60 Intensity: Moderate/Strong Fetus A Monitor: External (US) Heart Rate Baseline: 150 Presentation: Cephalic Variability: Moderate (6-25 BPM) Categories: Category I Accelerations: 15 X 15 Decelerations: None Amniotic Membrane Status: Intact Assessment and Plan Assessment and plan (1) Spontaneous onset of labor: Status: Acute Assessment and plan: Rest encouraged and will examine when appropriate. Franicsco continues to be symptomatic and feels lightheaded. Terese was paged by Justyna RN with this information. Will continue to assess. (2) PROM (premature rupture of membranes): Status: Acute Assessment and plan: Discussed pitocin augmentation with Joann if necessary. She agrees. Qualifiers: PROM onset of labor timing: unspecified duration between rupture of membranes and onset of labor PROM gestational age: full term Qualified Code(s): O42.92 - Full-term premature rupture of membranes, unspecified as to length of time between rupture and onset of labor Objective Temp Pulse Resp BP Pulse Ox 97.7 F 103 H 16 124/62 96 11/04/23 14:30 11/04/23 18:43 11/04/23 09:22 11/04/23 18:43 11/04/23 18:43 Laboratory Results WBC 10.23 10^3/uL (4.4-10.8) 11/04/23 08:57 RBC 4.36 10^6/uL (3.93-5.22) 11/04/23 08:57 Hgb 12.4 g/dL (11.2-15.7) 11/04/23 08:57 Hct 37.9 % (36.0-46.0) 11/04/23 08:57 MCV 87 fL (80-95) 11/04/23 08:57 MCH 28.4 pg (27.0-33.0) 11/04/23 08:57 MCHC 32.7 % (32.0-36.0) 11/04/23 08:57 RDW 13.8 % (11.7-14.6) 11/04/23 08:57 Plt Count 275 10^3/uL (130-400) 11/04/23 08:57 MPV 9.5 fL (8.0-11.0) 11/04/23 08:57 ABO/Rh B Positive 11/04/23 08:57 Antibody Screen NEGATIVE 11/04/23 08:57 Subjective Patient Reports: New Complaints Interval history since last seen: Francisco complains of fatigue and she is having a difficult time managing her contraction pain. She used the tub with fair effect and an epidural was placed by Terese Graham CRNA. She experienced nausea and lightheadedness after the epidural and B.P 80s/40s. Ephedrine was administered by Terese Graham x 2. Results Hemoglobin/Hematocrit: Hgb 12.4 g/dL (11.2-15.7) 11/04/23 08:57 Hct 37.9 % (36.0-46.0) 11/04/23 08:57
[2023-11-04] MEDS: Bupivacaine 0.25% Pres-Free 10 ML VIAL (18:57)
[2023-11-04] MEDS: fentaNYL 100 MCG/2 ML VIAL (18:58)
[2023-11-04] MEDS: Lactated Ringers 1,000 ML 125 ML IV (19:45)
--- NOTE | 2023-11-04 21:39 | W.PM.OBNL1 ---
Date of service: 11/04/23 Time of Service: 21:39 Informed Consent Informed Consent: Induction of Labor and Risk,Benefits,Alternatives Discussed Pelvic Exam Dilation: 3 Effacement (%): 80 station: -2 Cervix Position: posterior Consistency: soft Vaginal Exam Presentation: Cephalic ROM Plus: Positive Contractions Monitor Mode: Internal Contraction Frequency(min): every 3-5 Contraction Duration(sec): 40-50 Intensity: Moderate IUPC resting tone (mmHg): 10 IUPC peak pressure (mmHg): 40 Fetus A Monitor: External (US) Heart Rate Baseline: 150 Presentation: Cephalic Variability: Moderate (6-25 BPM) Categories: Category I FHR Rhythm: Regular Accelerations: 15 X 15 Decelerations: None Amniotic Membrane Status: Ruptured Rupture Method: Spontaneous Amniotic Fluid: Clear Assessment and Plan Assessment and plan (1) Spontaneous onset of labor: Status: Acute Assessment and plan: Will start labor augmentation with pitocin. IUPC placed to monitor contractions. Repositioned on right side with peanut ball and rest encouraged (2) PROM (premature rupture of membranes): Status: Acute Assessment and plan: Will continue to monitor labor progress. Qualifiers: PROM onset of labor timing: unspecified duration between rupture of membranes and onset of labor PROM gestational age: full term Qualified Code(s): O42.92 - Full-term premature rupture of membranes, unspecified as to length of time between rupture and onset of labor Objective Temp Pulse Resp BP Pulse Ox 98.6 F 111 H 16 121/66 99 11/04/23 21:12 11/04/23 21:35 11/04/23 20:00 11/04/23 21:35 11/04/23 21:02 Laboratory Results WBC 10.23 10^3/uL (4.4-10.8) 11/04/23 08:57 RBC 4.36 10^6/uL (3.93-5.22) 11/04/23 08:57 Hgb 12.4 g/dL (11.2-15.7) 11/04/23 08:57 Hct 37.9 % (36.0-46.0) 11/04/23 08:57 MCV 87 fL (80-95) 11/04/23 08:57 MCH 28.4 pg (27.0-33.0) 11/04/23 08:57 MCHC 32.7 % (32.0-36.0) 11/04/23 08:57 RDW 13.8 % (11.7-14.6) 11/04/23 08:57 Plt Count 275 10^3/uL (130-400) 11/04/23 08:57 MPV 9.5 fL (8.0-11.0) 11/04/23 08:57 ABO/Rh B Positive 11/04/23 08:57 Antibody Screen NEGATIVE 11/04/23 08:57 Subjective Interval history since last seen: Unable to sleep Results Hemoglobin/Hematocrit: Hgb 12.4 g/dL (11.2-15.7) 11/04/23 08:57 Hct 37.9 % (36.0-46.0) 11/04/23 08:57
[2023-11-04] MEDS: Oxytocin/Normal Saline 30 UNIT/500 ML BAG 2 UNITS IV (22:15)
[2023-11-05] VITALS (63 sets, daily range): BP systolic 92–150; BP diastolic 49–70; PULSE 92–146; RESP 16; TEMP 36.5–37.6; O2SAT 96–97
[2023-11-05] MEDS: Ondansetron 4 MG/2 ML VIAL IVP ×2 (01:08→06:49)
--- NOTE | 2023-11-05 01:23 | W.PM.OBNL1 ---
Date of service: 11/05/23 Time of Service: Informed Consent Informed Consent: Induction of Labor and Risk,Benefits,Alternatives Discussed Pelvic Exam Dilation: 4 Effacement (%): 90 station: -2 Position: LOP Cervix Position: mid Consistency: soft Vaginal Exam Presentation: Cephalic Contractions Monitor Mode: Internal Contraction Frequency(min): every 3-4 Contraction Duration(sec): 50 IUPC resting tone (mmHg): 15 IUPC peak pressure (mmHg): 40 IUPC [place] units: 100 Fetus A Monitor: External (US) Heart Rate Baseline: 140 Presentation: Cephalic Variability: Moderate (6-25 BPM) Categories: Category I FHR Rhythm: Regular Accelerations: 15 X 15 Decelerations: None Amniotic Membrane Status: Ruptured Amniotic Fluid: Clear Assessment and Plan Assessment and plan (1) Spontaneous onset of labor: Status: Acute Assessment and plan: Discussed slow progress and limited descent with Joann and her partner Mike. She stated that she really does not want a . We discussed the inadequate contraction strength and a plan was made to increase the pitocin to increase contraction strength and Joann and Mike agree with that plan. (2) PROM (premature rupture of membranes): Status: Acute Assessment and plan: Afebrile. Will continue to assess labor pattern. Qualifiers: PROM onset of labor timing: unspecified duration between rupture of membranes and onset of labor PROM gestational age: full term Qualified Code(s): O42.92 - Full-term premature rupture of membranes, unspecified as to length of time between rupture and onset of labor Objective Temp Pulse Resp BP Pulse Ox 99.0 F 112 H 16 120/61 96 11/05/23 01:11 11/05/23 01:20 11/04/23 22:00 11/05/23 01:20 11/05/23 00:53 Laboratory Results WBC 10.23 10^3/uL (4.4-10.8) 11/04/23 08:57 RBC 4.36 10^6/uL (3.93-5.22) 11/04/23 08:57 Hgb 12.4 g/dL (11.2-15.7) 11/04/23 08:57 Hct 37.9 % (36.0-46.0) 11/04/23 08:57 MCV 87 fL (80-95) 11/04/23 08:57 MCH 28.4 pg (27.0-33.0) 11/04/23 08:57 MCHC 32.7 % (32.0-36.0) 11/04/23 08:57 RDW 13.8 % (11.7-14.6) 11/04/23 08:57 Plt Count 275 10^3/uL (130-400) 11/04/23 08:57 MPV 9.5 fL (8.0-11.0) 11/04/23 08:57 ABO/Rh B Positive 11/04/23 08:57 Antibody Screen NEGATIVE 11/04/23 08:57 Vital Signs Reviewed: Yes Notable Details: Pitocin was started and increased to 10 mu/min. Subjective Patient Reports: New Complaints Interval history since last seen: Francisco began to experience shaking and increased pain. Straight catheterized for 500 cc clear urine. Results Hemoglobin/Hematocrit: Hgb 12.4 g/dL (11.2-15.7) 11/04/23 08:57 Hct 37.9 % (36.0-46.0) 11/04/23 08:57
[2023-11-05] MEDS: Lactated Ringers 1,000 ML 125 ML IV (03:40)
--- NOTE | 2023-11-05 05:34 | W.PM.OBNL1 ---
Date of service: 11/05/23 Time of Service: 05:35 Informed Consent Informed Consent: Induction of Labor and Risk,Benefits,Alternatives Discussed Pelvic Exam Dilation: 8 Effacement (%): 100 station: +1 Cervix Position: mid Consistency: soft Vaginal Exam Presentation: Cephalic Contractions Monitor Mode: External Contraction Frequency(min): every 3-4 minutes Contraction Duration(sec): 60 IUPC resting tone (mmHg): 10 Fetus A Monitor: External (US) Heart Rate Baseline: 130 Presentation: Vertex Variability: Moderate (6-25 BPM) Categories: Category I FHR Rhythm: Regular Accelerations: 15 X 15 Decelerations: Variable Recurrence: Episodic Assessment and Plan Assessment and plan (1) Spontaneous onset of labor: Status: Acute Assessment and plan: Nitrous oxide provided for pain relief. Anticipate . Comfort measures. reexamine in 2 hours unless she experiences an urge to push. Objective Temp Pulse Resp BP Pulse Ox 99.0 F 120 H 16 130/70 96 11/05/23 05:21 11/05/23 05:19 11/05/23 04:00 11/05/23 05:19 11/05/23 00:53 Laboratory Results WBC 10.23 10^3/uL (4.4-10.8) 11/04/23 08:57 RBC 4.36 10^6/uL (3.93-5.22) 11/04/23 08:57 Hgb 12.4 g/dL (11.2-15.7) 11/04/23 08:57 Hct 37.9 % (36.0-46.0) 11/04/23 08:57 MCV 87 fL (80-95) 11/04/23 08:57 MCH 28.4 pg (27.0-33.0) 11/04/23 08:57 MCHC 32.7 % (32.0-36.0) 11/04/23 08:57 RDW 13.8 % (11.7-14.6) 11/04/23 08:57 Plt Count 275 10^3/uL (130-400) 11/04/23 08:57 MPV 9.5 fL (8.0-11.0) 11/04/23 08:57 ABO/Rh B Positive 11/04/23 08:57 Antibody Screen NEGATIVE 11/04/23 08:57 Vital Signs Reviewed: Yes Subjective Patient Reports: New Complaints Interval history since last seen: pressure with contraction Results Hemoglobin/Hematocrit: Hgb 12.4 g/dL (11.2-15.7) 11/04/23 08:57 Hct 37.9 % (36.0-46.0) 11/04/23 08:57
[2023-11-05] MEDS: FentaNYL/ROPIvacaine 2 mcg/ml and 0.1% 200 ML CADD Cassette EP (06:06)
[2023-11-05] MEDS: miSOPROStol 200 MCG TAB 600 MCG SL (09:08)
[2023-11-05] MEDS: Lidocaine 1% Multi-Dose 20 ML VIAL IJ (09:08)
[2023-11-05] MEDS: Ibuprofen 600 MG TAB PO ×3 (09:13→22:02)
[2023-11-05] MEDS: Acetaminophen 325 MG TAB 650 MG PO ×3 (09:13→20:30)
--- NOTE | 2023-11-05 10:43 | W.OBDELIVERY ---
Date of service: 11/05/23 Time of Service: 10:43 OB Labor/ Delivery Information Baby A Delivery Delivery Method: Spontaneaous Presentation: Cephalic Cephalic Position: Vertex Vertex Position: Right Occipital Anterior Cord Description-Baby A: 3 Vessels Cord Description Comment: placenta butterfly shaped Amniotic Fluid: Clear Estimated Blood Loss: 350 Delivery Outcome: Liveborn Infant Transferred: Remains with Mother Note: Cherree continued resting and using patient controlled analgesia with good effect. FHTs 140s during first stage of labor with occasiona variable decelerations. FHTs 130s in second stage. She progressed to full dilation with and urge to push and began pushing well using a squat bar. Second stage huddle was done. Spontaneous delivery of male infant delivered in KASHIF position. Baby was placed on mother's abdomen and dried and stimulated. There was a loose nuchal cord. Spontaneous cry. Cord was clamped and cut by the baby's father. The placenta delivered spontaneously and appears to by intact with a three vessel cord. Pitocin 30 units IV was administered prior to delivery of the placenta. The perineum was inspected and a first degree laceration was repaired. The baby did attempt to breastfeed but had some difficulty latching. After delivery, Mother and baby and father of the baby were stable and bonding well in the delivery room and there were no complications. Providers Nurse Professional Bass Fisherman: Meggan Lobo Dietary Worker: Adela Graham Nurse: Jhon Serna Nurse: Francheska Del Toro Labor/Delivery Information Number of Babies in Womb: 1 Steroids Given: None Group Beta Strep: Negative Antibiotics Administered: No Rubella Status: Immune Blood Type: B+ Varicella Immunity: Immune Born En Route: No Maternal Complications: Premature Rupture of Membranes Shoulder Dystocia: No Stages of Labor Onset of Labor Date: 11/04/23 Onset of Labor Time: 01:30 Complete Dilatation Date: 11/05/23 Complete Dilatation Time: 07:13 Labor - Stage 1 Duration: 29 hours and 43 minutes ROM Baby A: 11/04/23 ROM Baby A: 01:30 Infant Delivery Date-Baby A: 11/05/23 Delivery Time-Baby A: 08:15 Labor Stage 2 Duration: 1 hours and 2 minutes Placenta Delivery Date-Baby A: 11/05/23 Placenta Delivery Time-Baby A: 08:23 Labor-Stage 3 Duration: 8 minutes Total Length of Labor-Baby A: 30 hours and 45 minutes Placenta Status: Delivered Baby A Infant Gender: Male Gestational Age in Weeks/Days: 39 Weeks and 1 Days Score-1 Minute Interval(Baby A) Heart Rate-1 minute: 100 BPM or Greater Respiratory Effort- 1 minute: Spontaneous/Strong Cry Muscle Tone-1 minute: Minimal Flexion/Extension Reflex Response-1 minute: Prompt Response Color-1 minute: Bluish Hands or Feet Total Score-1 minute: 8 Score-5 Minute Interval(Baby A) Heart Rate- 5 minute: 100 BPM or Greater Respiratory Effort-5 minute: Spontaneous/Strong Cry Muscle Tone-5 minute: Active Movement Reflex Response-5 minute: Prompt Response Color-5 minute: Bluish Hands or Feet Total Score- 5 minute: 9 Interventions Repair of Laceration Type: Perineal and Periurethral, Laceration Extension: Second Degree. Sponge Count Correct: No Sponges Placed in Vagina, Sharp Count Correct: Yes. Laceration Repair Note: bilateral periurethral lacerations not repaired, Perineal laceration repaired under epidural analgesia
[2023-11-05] MEDS: Dibucaine 1% 28 GM TUBE TP (16:29)
[2023-11-05] MEDS: Hamamelis Leaf/Glycerin 100 EACH BOX PR (16:30)
[2023-11-05] MEDS: Docusate Sodium 100 MG CAP PO (20:31)
--- NOTE | 2023-11-06 01:19 | W.ANESPOSTOP ---
Postoperative Evaluation Date, Time and Location Date Performed: 11/05/23 Time Performed: 23:15 Patient Location: Obstetrics Vital Signs Most Recent Imported Vital Signs: Most Recent Vital Signs Temp Pulse Resp BP Pulse Ox 36.7 C 101 H 16 98/56 L 97 11/05/23 20:17 11/05/23 20:17 11/05/23 20:17 11/05/23 20:17 11/05/23 20:17 Pain Score Most Recent Pain Score: Most Recent Pain Score Pain Level 1 11/05/23 17:18 Assessment Mental Status: Awake (Alert & Oriented to Patient Baseline) Airway and Respiratory Function: Patent airway with normal (patient baseline) respiratory exam Cardiovascular Function: Hemodynamically Stable Hydration Status: Adequately Hydrated Nausea & Vomiting: No Nausea or Vomiting Pain: Pain is tolerable per patient Peripheral Nerve Block: Patient did not receive a nerve block Postoperative Comments:: per chart review
[2023-11-06] MEDS: Acetaminophen 325 MG TAB 650 MG PO ×3 (03:47→12:29)
[2023-11-06] MEDS: Ibuprofen 600 MG TAB PO ×2 (06:05→12:29)
[2023-11-06 07:49] VITALS: BP 105/64; PULSE 96; RESP 17; TEMP 37; O2SAT 96
[2023-11-06] MEDS: Docusate Sodium 100 MG CAP PO (08:07)
--- NOTE | 2023-11-06 11:37 | DSE_ITS ---
Date of service: 11/06/23 Time of Service: 11:37 DS: Diagnosis Discharge Diagnosis (1) Term of male : Status: Acute Asessment and Plan: Caring for baby independently. Pain is managed well with oral analgesics. Voiding without difficulty. with some difficulty with latching requiring a nipple shield. A - stable mother and baby , Post day 1 P - Discharge to home today. Routine post instructions. [facility] (2) Anxiety: Status: Chronic Asessment and Plan: She will continue sertraline 50 mg PO daily. Signs of post depression reviewed. Discharge Plan Disposition Patient Disposition: Home Condition: Good Discharge Details Reason For Visit: PROM at 39 Wks Admit Date/Time: 11/04/23 08:46 Admit Provider: Diana Lebron Attending Provider: Diana Lebron Primary Care Provider: Jhoana Davila Home Meds and New Rx's Prescriptions: No Action PNV #[id number] acid-dha 35 mg iron-5 mg iron-1 mg capsule 1 cap PO DAILY magnesium 200 mg tablet 200 mg PO DAILY PRN ascorbate calcium (vitamin C) 500 mg tablet 500 mg PO DAILY PRN ondansetron HCl 8 mg tablet 8 mg PO Q8H PRN (Reason: nausea and vomiting) Qty: 30 3RF [place] oil 1 cap PO DAILY omeprazole magnesium [Acid Yarn Dumper (omeprazole)] 20 mg capsule,delayed release(DR/EC) 40 mg PO DAILY PRN Colace Clear 50 mg capsule 50 mg PO BID PRN sertraline 50 mg tablet 50 mg PO DAILY Qty: 30 8RF Discharge Instructions Activity:: Activity as Tolerated Equipment/Supplies:: No Equipment Needed Diet:: As Tolerated Discharge Orders Discharge Orders: Discharge Order (Routine); Ordered 11/06/23 Ordered By: Meggan Lobo OB:DS Summary Summary Vaginal Delivery Method: Spontaneaous Laceration Description: Perineal and Periurethral Laceration Extension: Second Degree Contraception Discussed Contraception Discussed: Yes Contraceptive Plan: Undecided, Gender-Baby A: Male weight: 7 lb 15.515 oz Status at Discharge Functional status at discharge: independent ambulation Overall status at discharge: patient is back to baseline Mental Status: mental status grossly normal Speech and Movement: speech and movement normal Mood: congruent mood Affect: normal affect Quality:SDOH Health Related Social Needs: No Data to Display Exam Physical Exam Vital signs: Temp Pulse Resp BP Pulse Ox 98.6 F 96 H 17 105/64 96 11/06/23 07:49 11/06/23 07:49 11/06/23 07:49 11/06/23 07:49 11/06/23 07:49 Vital Signs Reviewed: Yes Constitutional Constitutional: no acute distress Neck Exam Neck Exam: Normal Respiratory Exam Respiratory Exam: Normal Cardiovascular Exam Cardiovascular Exam: Normal Fundal Exam Fundus: Below Umbilicus and Firm Extremities Exam Extremity Exam: Normal Back/Spine/Pelvis Exam Back Exam: Normal Skin Exam Skin Exam: Normal Psychiatric Exam Psychiatric Exam: Normal PFSH All Active Problems (Updated 11/06/23 @ 11:38 by Meggan Lobo CNM) Term of male (Acute) Stress incontinence (Acute) Anxiety (Chronic) Iron deficiency (Acute) Scoliosis deformity of spine (Chronic) Pars defect with spondylolisthesis (Chronic) [facility]; Pars defect of L5 causes grade 2 spondylolisthesis of L5 on S1 Medical History (Updated 11/06/23 @ 11:38 by Meggan Lobo CNM) Nausea/vomiting in 03/2023. Initial Rx Ondansetron not effective. 04/06/23. Discontinued Ondansetron, Began Reglan 5mg q6hr Cramping affecting , antepartum Family history of thyroid disease Impacted cerumen of right ear Syncope nneka (03/17/15) Fracture of radius and ulna (08/16/05) RIGHT Family History (Updated 04/22/23 @ 10:54 by Meggan Hall CNM) Mother Frequent UTI Thyroid disease Father Essential hypertension Brother Hyperlipidemia Maternal Grandfather , 76 No problems noted. Paternal Grandfather , 36 Cancer Lung CA, was smoker Maternal Grandmother Asthma Paternal Grandmother Breast cancer diagnosed 71 Brother No problems noted. Social History Smoking/Tobacco Use Status: Never Second Hand Exposure: Yes Smoking risk assessment performed?: Yes Drug use: Never Substance use type: does not use Counseling given: No Counseling provided: none Caregiver/Support person: No Household members: significant other Housing: house Communication Needs: None Do you need help understanding health information?: Never current occupation: Works as a dental hygienist Pets and animals: Yes Pets and animals: dog(s) Sexually active: Yes Do you think of yourself as: straight/heterosexual Current gender identity: female What is your relationship status?: living with partner How often do you talk on the phone with friends or family?: three or more times per week How often do you get together with friends or relatives?: three or more times per week How often do you attend temple or denominational services?: 1-3 times per year Do you belong to any clubs or organized social groups?: no Panel score (0-1 are the most socially isolated patients): 2 What type of physical activity do you participate in: aerobic and weight lifting Duration: 45-60 minutes/day Frequency: 3-4 times per week Coco/Scientologist: Baptism Special coco needs: No Seatbelt use: always Helmet use: Yes Helmet use: always Drive intox or ride w/intox driver manager: No Do you feel safe at home: Yes Do you feel safe in your relationship?: Yes History History 2 Para 0 Hx # Term Pregnancies 0 Multiple births 0 Hx # Pregnancies 0 Ectopic pregnancies 0 AB induced 0 Hx Number of Living Children 0 AB spontaneous 1 Past Pregnancies Del. Date GA/Weeks # Preg Succ Route Wgt Sex Labor Lgth Anesth esia Location [facility] 01/19/23 6 No Delivery Date: 01/19/23 Last Updated by: Meggan Hall CNM [facility], treated at [facility]/ D&C DS: Data Vitals/I&O Vitals and I&O: Vital Signs Temperature 98.6 F 11/06/23 07:49 Temperature 98.2 F 11/04/23 08:43 Temperature Source Oral 11/06/23 07:49 Pulse 96 H 11/06/23 07:49 Pulse 108 11/04/23 08:43 Pulse Rhythm Regular 11/06/23 08:00 Respiratory Rate 17 11/06/23 07:49 Respiratory Depth Normal 11/05/23 20:17 Blood Pressure 105/64 11/06/23 07:49 Blood Pressure 134/79 11/04/23 08:43 Blood Pressure Mean 77 11/06/23 07:49 Pulse Oximetry 96 11/06/23 07:49 Oxygen Delivery Method Room Air 11/04/23 09:22 Oxygen Flow Rate 0 11/04/23 09:22 Pain Level 2 11/06/23 08:06 Intake & Output 11/05/23 11/05/23 11/06/23 11:59 23:59 11:59 Intake Total 2029.667 / 3030.667 1000 / 3030.667 Output Total 650 / 1850 1200 / 1850 Balance 1380.667 / 1180.667 -200 / 1180.667 Intake: IV 2029.667 / 3030.667 1000 / 3030.667 Output: Urine 650 / 1850 1200 / 1850 Other: Urine Color Yellow Yellow Yellow [place] Urine Appearance Clear Clear Clear Urine Odor None Comment occasional small stringy clots wnl Voiding Methods Indwelling Catheter Toilet
[2023-11-06] MEDS: Sertraline 50 MG TAB PO (12:30)
[2023-11-06] MEDS: Dibucaine 1% 28 GM TUBE TP (12:34)
== END 2023-11-06 18:10 | disposition home or self-care (01) | DRG 807 ==
LOC: BCD 09:06 → OBS 09:06
PROVIDERS: Admitting Provider Advanced Practice Midwife; PCP Nurse Practitioner Family; Visit Provider Advanced Practice Midwife
DX: O42.92 Full-term premature rupture of membranes, unspecified as to length of time between rupture and onset of labor (principal); Z37.0 Single live birth; Z3A.39 39 weeks gestation of pregnancy; O99.344 Other mental disorders complicating childbirth; O99.02 Anemia complicating childbirth; D64.9 Anemia, unspecified; F41.9 Anxiety disorder, unspecified; M41.9 Scoliosis, unspecified; O75.89 Other specified complications of labor and delivery; O69.81X0 Labor and delivery complicated by cord around neck, without compression, not applicable or unspecified; O70.0 First degree perineal laceration during delivery
CPT/HCPCS: 36415; 85027; 86850; 86900; 86901; J0665; J2003; J2405; J3010

== ENCOUNTER → 2025-02-27 00:03 | Outpatient (CLI) | payer OTHER, SELFPAY ==
[2025-02-27] MEDS: Barium Sulfate 2% W/V-Berry Smoothie 450 ML BTL PO ×2 (07:02→07:03)
[2025-02-27] MEDS: Normal Saline - Diluent 50 ML VIAL IJ (09:07)
[2025-02-27] MEDS: Omnipaque 350 MG/ML 100 ML BTL IJ (09:07)
[2025-02-27] MEDS: Normal Saline Flush 10 ML SYR IVP (09:07)
--- NOTE | 2025-02-27 09:08 | DI.CT_ITS ---
Exam(s) CT ABDOMEN PELVIS W EXAM: CT ABDOMEN PELVIS W CLINICAL HISTORY: R19.01 RUQ abd swelling,mass lump. TECHNIQUE: Imaging Protocol: Axial computed tomography images with coronal and sagittal reformatted images were created and reviewed CONTRAST MATERIAL: Intravenous: Omnipaque-350 75cc Oral: Yes. Oral contrast was also administered for bowel opacification. COMPARISON: No exams were available for comparison FINDINGS: VISUALIZED LUNG BASES: No nodules nor pleural effusions evident. ABDOMEN: There is no ascites. LIVER: There are no focal hepatic lesions evident. No dilated intrahepatic ducts. GALLBLADDER/BILIARY: No obvious gallbladder pathology. CBD is not dilated. PANCREAS: No evidence of pancreatic mass nor dilatation of the pancreatic duct. SPLEEN: Spleen is not enlarged. No obvious intrasplenic lesions. Splenic and portal veins are patent. ADRENALS: There are no significant adrenal masses. KIDNEYS:No cysts evident. No solid renal masses. No calculi nor hydronephrosis.. ABDOMINAL AORTA: Abdominal aorta is not enlarged. LYMPH NODES:There is no retroperitoneal nor paraaortic adenopathy. ABDOMINAL WALL: No evidence of significant anterior abdominal wall nor inguinal hernia. GI: There is no evidence of bowel obstruction, free air, nor abscess. No evidence of mesenteric masses nor fluid collections. PELVIS: GI: No evidence of appendicitis.No evidence of sigmoid diverticulitis. LYMPH NODES: There is no intrapelvic nor inguinal adenopathy. REPRODUCTIVE: Uterus and ovaries appear age-appropriate. There are no extraovarian adnexal masses and there is no free fluid in the pelvis. URINARY BLADDER: No calculi nor obvious masses evident OSSEOUS: There is 1.5 cm anterolisthesis of L5 upon S1 due to bilateral pars interarticularis defects at L5 level. There is also advanced disc space narrowing at L5-S1 level. There is also a scoliosis noted in the lumbar spine which is convex left. The sacroiliac joints appear unremarkable. There are no osseous lesions. Hips appear unremarkable. IMPRESSION: 1. No evidence of mass nor abnormal fluid collection in the abdomen and pelvis. 2. No evidence of infectious/inflammatory process in the abdomen and pelvis nor in the visualized lung bases. 3. There is scoliosis convex left in the lumbar spine. There is also anterior listhesis of L5 upon S1 due to pars defects at L5 level. There are no significant osseous lesions. RADIATION DOSE DELIVERED: 461.51mGy.cm Total DLP DATA REPOSITORY: All CT scans at this facility are submitted to the National Radiology Data Registry (NRDR) Dose Index Registry (DIR) with the [employer] (ACR). RADIATION OPTIMIZATION: All CT scans at this facility use at least one of these dose optimization techniques: automated exposure control; mA and/or kV adjustment per patient size (includes targeted exams where dose is matched to clinical indication); or iterative reconstruction.
== END ==
PROVIDERS: PCP Nurse Practitioner Family; Visit Provider Nurse Practitioner Family
DX: R19.01 Right upper quadrant abdominal swelling, mass and lump (principal)
CPT/HCPCS: 74177; J3490